=== PATIENT | male | born 1990 | race Caucasian/White ===

== ENCOUNTER 2018-12-01 05:22 | Emergency (ER) | payer OTHER, BC ==
[~2018-12-01] VITALS: Ht 188 cm; Wt 77.1 kg
[2018-12-01] MEDS ORDERED: NORCO 5-325 TA1 EACH PO (06:26)
[2018-12-01] MEDS ORDERED: FLEXERIL PO (06:26)
[2018-12-01] MEDS ORDERED: IBUPROFEN 600600 M1 PO (06:26)
[2018-12-01 06:44] VITALS: BP 136/88
== END 2018-12-01 06:45 | disposition home or self-care (01) ==
LOC: ER 05:22
DX: S05.02XA Injury of conjunctiva and corneal abrasion without foreign body, left eye, initial encounter (principal); S50.812A Abrasion of left forearm, initial encounter; Y04.0XXA Assault by unarmed brawl or fight, initial encounter; Y93.89 Activity, other specified; Y92.89 Other specified places as the place of occurrence of the external cause; Y99.8 Other external cause status